=== PATIENT | male | born 1950 | race Caucasian/White ===

== ENCOUNTER → 2016-08-26 10:30 | Outpatient (CLI) | payer MEDICARE, OTHER | END | disposition home or self-care (01) | LOC: D.RAD 10:30 | DX: R13.10 Dysphagia, unspecified (principal) ==

== ENCOUNTER → 2018-02-27 14:20 | Outpatient (CLI) | payer MEDICARE, OTHER ==
--- NOTE | ~2018-02-27 | ST ---
PATIENT:ROSIE BRADY MEDICAL RECORD: [id number] SEX: M LOCATION:[facility] ORDER #: ADMISSION DATE: 02/27/18 AGE OF PATIENT: 67 REFERRING PHYSICIAN: INTERPRETING PHYSICIAN: MANJULA HATFIELD MD DATE OF SERVICE: 02/27/2018 TREADMILL STRESS TEST Baseline ECG is normal. Exercised for 7 minutes 30 seconds on Milton protocol. Maximum heart rate 150 beats per minute, 100% of max predicted. There was some horizontal ST depression in the inferolateral leads noted with peak exertion, lasting briefly in recovery. Normal blood pressure response to exercise. No arrhythmias noted. Good exercise tolerance for age. IMPRESSION: Clinically suspicious treadmill stress test. TRANSINT:[id number] Voice Confirmation ID: [id number] DOCUMENT ID: [id number] MANJULA HATFIELD MD CC: [id number] DICTATION DATE: 02/28/18 1520 PET NUTRITION SPECIALIST: 02/28/18 2329 DEP CLI 02/27/18 [place] [id number] [place] [id number]
== END | disposition home or self-care (01) ==
LOC: D.HCCARDIO 14:20
DX: R06.09 Other forms of dyspnea (principal)

== ENCOUNTER 2018-03-07 11:55 | Outpatient (CLI) | payer MEDICARE, OTHER ==
[~2018-03-07] VITALS: Ht 172.7 cm; Wt 95.5 kg
--- NOTE | ~2018-03-07 | HEMODYNAMI ---
PATIENT:ROSIE BRADY MEDICAL RECORD: [id number] : 48 LOCATION:D.CAT ADMISSION DATE: 03/07/18 Generatedon:03/07/201815:20 Patient name: ROSIE BRADY Patient #: [id number] SSN: DO B: 1950 Date of study: 03/07/2018 Page: Of Hemodynamic Procedure Report Patient Data Patient Demographics Procedure consent was obtained First Name: ROSIE Gender: Male Last Name: CAITLYN : 1950 [facility] Initial: D Age: 67 year(s) Patient #: [id number] Race: Unknown Additional ID: [id number] Contact details Address: [address] [place] [address] State: [place] City: [facility] [place] Zip code: [address] Past Medical History Allergies: No known allergies Admission Admission Data Admission Date: 03/07/2018 Admission Time: 11:55 Admit Source: Other Lab Results Lab Result Date: 03/07/2018 Lab Result Time: 12:25 Biochemistry Name Units Result Min Max BUN mg/dl 16 --(---*)-- 7 18 Creatinine mg/dl 1 --(--*-)-- 0.6 1.3 CBC Name Units Result Min Max Hematocrit % 42.3 --(*---)-- 42 54 Hemoglobin g/dl 14.8 --(-*--)-- 13.5 17.5 Procedure Procedure Types Cath Procedure Diagnostic Procedure [facility] w/Coronaries Sedation Charges Moderate Sedation up to 15 minutes Procedure Description Procedure Date Procedure Date: 03/07/2018 Procedure Start Time: 15:05 Procedure End Time: 15:19 Procedure Staff Name Function Guzman North MD Performing Physician Lorena Haile RT Monitor Rah Gipson RT Scrub Jackie Gomez RN Nurse Alber Self RN Research Project Coordinator Procedure Data Cath Procedure Fluoroscopy Diagnostic fluoroscopy Total fluoroscopy Time: 3.7 time: 3.7 min min Diagnostic fluoroscopy Total fluoroscopy dose: 373 dose: 373 mGy mGy Contrast Material Contrast Material Type Amount (ml) Isovue 300 55 Entry Location Entry Primary Successful Side Size Upsize Upsize Entry Closure Nelson ccessful Closure Location (Fr) 1 (Fr) 2 (Fr) Remarks Device Remarks Radial Right 6 Fr Mechanical artery Short Compression Estimated blood loss: 5 ml Diagnostic catheters Device Type Used For End Catheter Placement DIAGNOSTIC [place] 110cm 5 Procedure Fr catheter ([id number]) DIAGNOSTIC Pigtail 5Fr Procedure catheter ([id number]) Procedure Complications No complications Procedure Medications Medication Administration Route Dosage 0.9% NaCl I.V. 100 ml/hr Oxygen etCO2 Nasal cannula 2 l/min Lidocaine 2% added to field 20 Heparin Flush Bag added to field 2 bags (1000units/500ml NS) Radial Cocktail added to field 1 syringe (Verapomil 2mg/Nitro 400mcg/Heparin 1500units) Versed I.V. 2 mg Fentanyl I.V. 50 mcg Versed I.V. 1 mg Fentanyl I.V. 25 mcg Hemodynamics Rest HGB: 14.8 (g/dl) Heart Rate: 52 (bpm) Pressure Samples Time Site Value (mmHg) Purpose Heart Use Rate(bpm) 15:15 LV 117/1,20 Snapshot 65 Gradients Valve Time Site Site Mean SEP/DFP Peak To Heart Use 1 2 (mmHg) (sec/min) Peak Rate (mmHg) (bpm) Aortic 15:15 LV AO 61 Snapshots Pre Cath Intra NCS Post Cath Vital Signs Time Heart Resp SPO2 etCO2 NIBP Rhythm Pain Sedation Rate (ipm) (%) (mmHg) (mmHg) Status Level (bpm) 14:52:20 54 10 100 33.5 114/65(80) NSR 0 (11) 10(A) , No pain 14:56:40 52 15 100 38.6 111/65(87) NSR 0 (11) 10(A) , No pain 15:00:58 55 12 97 29 110/58(86) NSR 0 (11) 10(A) , No pain 15:05:14 54 10 97 31.9 112/65(79) NSR 0 (11) 10(A) , No pain 15:09:24 63 10 96 18.6 102/64(82) NSR 0 (11) 9(A) , No pain 15:13:40 66 10 96 28.1 113/66(93) NSR 0 (11) 9(A) , No pain 15:17:59 58 12 97 36.4 124/71(88) NSR 0 (11) 10(A) , No pain Medications Time Medication Route Dose Verified Delivered Reason Notes E ffectiveness by by 14:54:51 0.9% NaCl I.V. 100 Guzman Jackie used for ml/hr Mary Anne Jason procedure MD SANDOVAL 14:55:01 Oxygen etCO2 2 l/min Guzman Jackie used for Nasal Mary Anne Jason procedure cannula MD SANDOVAL 14:55:07 Lidocaine 2% added 20ml Guzman Hinds for local [facility] BARKER 14:55:12 Heparin Flush added 2 bags Guzman Guzman used for Bag to [facility] procedure (1000units/500ml field MD BARKER NS) 14:55:19 Radial Cocktail added 1 Guzman Guzman used for (Verapomil to syringe Mary Anne Mary Anne procedure 2mg/Nitro field MD BARKER 400mcg/Heparin 1500units) 14:58:46 Fentanyl I.V. 50 mcg Guzman Jackie for Mary Anne Jason sedation MD SANDOVAL 14:58:46 Versed I.V. 2 mg Guzman Jackie for Mary Anne Jason sedation MD SANDOVAL 15:04:59 Versed I.V. 1 mg Guzman Jackie for Mary AnneCrispin Gomez sedation MD SANDOVAL 15:05:03 Fentanyl I.V. 25 mcg Guzman Jackie for Mary AnneCrispin Gomez sedation MD SANDOVALmaturity checker Log Time Note 14:36:40 Informed consent obtained and on chart 14:36:43 Admit Source: Other 14:36:47 Diagnostic Cath status Elective 14:36:48 Time tracking: Regular hours (M-F 7:00 - 5:00) 14:36:51 Plan of Care:Hemodynamics will remain stable., Cardiac rhythm will remain stable., Comfort level will be maintained., Respiratory function will remain adequate., Patient/ family verbilizes understanding of procedure., Procedure tolerated without complication., Recovers from procedure without complications.. 14:37:38 H&P Date Dictated: 03/02/2018 Within 30 days and on chart., H&P Addendum completed by physician on day of procedure. (MUST COMPLETE FOR ALL OUTPATIENTS). 14:38:53 Lab Result : Creatinine 1 mg/dl 14:38:53 Lab Result : BUN 16 mg/dl 14:38:53 Lab Result : Hemoglobin 14.8 g/dl 14:38:53 Lab Result : Hematocrit 42.3 % 14:39:17 Alber Self RN sent for patient. Start room use. 14:43:44 Patient received from Pre/Post Procedure Room to CCL 1 Alert and oriented. Tansferred to table in Supine position. 14:43:46 Warm blankets applied, and manuel hugger turned on for patient comfort. 14:43:46 Correct patient and procedure confirmed by team. 14:43:49 ECG and BP/O2 sat monitors applied to patient. 14:51:08 Vital chart was started 14:54:51 0.9% NaCl 100 ml/hr I.V. was administered by Jackie Gomez RN; used for procedure; 14:55:01 Oxygen 2 l/min etCO2 Nasal cannula was administered by Jackie Gomez RN; used for procedure; 14:55:07 Lidocaine 2% 20ml vial added to field was administered by Guzman North MD; for local anesthetic; 14:55:12 Heparin Flush Bag (1000units/500ml NS) 2 bags added to field was administered by Guzman North MD; used for procedure; 14:55:19 Radial Cocktail (Verapomil 2mg/Nitro 400mcg/Heparin 1500units) 1 syringe added to field was administered by Guzman North MD; used for procedure; 14:57:26 Baseline sample Acquired. 14:57:30 Rhythm: sinus bradycardia 14:57:31 Full Disclosure recording started 14:57:31 Pre-procedure instructions explained to patient. 14:57:31 Pre-op teaching completed and patient verbalized understanding. 14:57:33 Family unavailable. 14:57:35 Patient NPO since Midnight. 14:57:40 Patient allergic to No known allergies 14:57:42 Is patient on blood thinner?No 14:57:44 Patient diabetic? No. 14:57:46 Previous problem with sedation/anesthesia? No ? 14:57:47 Snore? Yes 14:57:47 Sleep apnea? Yes 14:57:48 Deviated septum? No 14:57:49 Opens mouth fully? Yes 14:57:49 Sticks out tongue? Yes 14:57:51 Airway obstruction? No ? 14:57:53 Dentures? No ? 14:57:56 Modified Prasanna's test Ulnar < 7 seconds 14:57:58 Patient pain scale 0/10 ?. 14:58:01 IV patent on arrival in left hand with 0.9% NaCl at O. 14:58:03 Lab results completed and on chart. 14:58:05 Right Radial & Right Groin area was prepped with chlora-prep and draped in sterile fashion 14:58:06 Alarms reviewed by R. N. 14:58:06 Sharps counted by scrub and verified by R.N. 14:58:28 --------ALL STOP TIME OUT------ 14:58:28 Final Timeout: patient, procedure, and site verified with staff and physician. All members of the team are in agreement. 14:58:30 Right Radial & Right Groin site verified by team. 14:58:33 Physical assessment completed. ASA score P 2 - A patient with mild systemic disease as per Guzman North MD. 14:58:36 Sedation plan: IV Moderate Sedation Medication:Versed, Fentanyl 14:58:39 Use device set Radial Dx or PCI 14:58:40 ACIST Syringe (95266) opened to sterile field. 14:58:41 Bag Decanter (2001S) opened to sterile field. 14:58:42 ACIST Hand Control (48134) opened to sterile field. 14:58:42 ACIST Manifold (39409) opened to sterile field. 14:58:43 Tegaderm 4 x 4 (1626W) opened to sterile field. 14:58:46 Fentanyl 50 mcg I.V. was administered by Jackie Gomez RN; for sedation; 14:58:46 Versed 2 mg I.V. was administered by Jackie Gomez RN; for sedation; 14:58:52 Medline Cath Pack ([id number]) opened to sterile field. 14:58:52 DIAGNOSTIC WIRE .035 260cm J wire (114146) opened to sterile field. 14:58:53 MBrace Wrist Support ([id number]) opened to sterile field. 14:58:54 SHEATH 6FR Slender (02-6596) opened to sterile field. 15:02:43 Zero performed for pressure channel P1 15:04:59 Versed 1 mg I.V. was administered by Jackie Gomez RN; for sedation; 15:05:00 Procedure started. 15:05:03 Fentanyl 25 mcg I.V. was administered by Jackie Gomez RN; for sedation; 15:05:20 Local anesthetic to right radial artery with Lidocaine 2% by Guzman North MD.INITIAL ACCESS ONLY 15:06:38 A 6 Fr Short sheath was inserted into the Right Radial artery 15:07:08 A DIAGNOSTIC [place] 110cm 5 Fr catheter (264047) was advanced over the wire and used for Procedure. 15:09:25 GLIDE WIRE ANGLE 260cm (EL8084) opened to sterile field. 15:09:45 GLIDEWIRE ADVANCED 15:09:58 MAGIC TORQUE 180cm 0.035 wire ([id number]) opened to sterile field. 15:11:29 LCA angiography performed. 15:13:00 RCA angiography performed. 15:13:06 Catheter exchanged over wire. 15:13:49 A DIAGNOSTIC Pigtail 5Fr catheter (166111J) was advanced over the wire and used for Procedure. 15:14:35 LV gram done using JULIEN 15:14:40 Injector settings: Ml/sec: 5, Volume: 15, 15:15:05 LV hemodynamics recorded. 15:15:14 EF : 55 % 15:15:22 Catheter removed. 15:15:41 TR BAND Standard ([id number]) opened to sterile field. 15:15:48 Procedure ended.(Physican Out) 15:16:01 Sheath removed intact; hemostasis achieved with Mechanical Compression to the Right Radial artery. 15:16:31 Fluoroscopy time 03.70 minutes. 15:16:35 Fluoroscopy dose: 373 mGy 15:16:35 Flurop Dose total: 373 15:16:38 Contrast amount:Isovue 300 55ml. 15:16:55 TR band inflated with 10cc of air. 15:17:00 Post-procedure physical assessment completed. ASA score P 2 - A patient with mild systemic disease as per Guzman North MD. 15:17:03 Post procedure rhythm: sinus bradycardia 15:17:05 Estimated blood loss: 5 ml 15:17:06 Post procedure instruction explained to patient.Patient verbalizes understanding. 15:17:06 Patient needs reinforcement of post procedure teaching. 15:18:58 Procedure type changed to Cath procedure, Diagnostic procedure, LHC, LHC w/Coronaries, Sedation Charges, Moderate Sedation up to 15 minutes 15:19:32 Procedure and supply charges have been captured, reviewed, submitted and are correct. 15:19:35 Procedure Complication : No complications 15:19:36 Vital chart was stopped 15:19:37 See physician's report for complete and final results. 15:19:39 Report given to Pre/Post Procedure Room. 15:19:41 Patient transfered to Pre/Post Procedure Room with Bed. 15:19:43 Procedure ended. 15:19:43 Full Disclosure recording stopped 15:19:50 End room use (Document Last) Device Usage Item Name Manufacture Quantity Catalog Hospital Part Current Minima l Lot# / Number Charge Number Stock Stock Serial# Code ACIST Acist 1 84289 347712 159714 053845 20 Syringe Medical (80154) Systems Inc Bag Decanter Microtek 1 2001S 109575 04383 238271 5 (2001S) Medical Inc. ACIST Hand Acist 1 44118 639920 336433 764173 5 Control Medical (62565) Systems Inc ACIST Acist 1 32777 963431 282828 544185 5 Manifold Medical (12785) Systems Inc Tegaderm 4 x 3M 1 1626W 530268 532491 287448 5 4 (1626W) Medline Cath Medline 1 [id number] 070178 30078 911445 5 Pack ([id number]) DIAGNOSTIC [place] 1 976962 925552 678801 824591 30 WIRE .035 260cm J wire (776626) MBrace Wrist Advanced 1 140-0250-00 789227 20424 623177 5 Support Vascular (029840159) Dynamics SHEATH 6FR Terumo 1 [id number] 583658 039939 440145 5 Slender (80-1060) DIAGNOSTIC Terumo 1 40-1723 296124 818037 770963 5 [place] 110cm 5 Fr catheter (845360) GLIDE WIRE Terumo 1 AV8025 593189 920790 196557 5 ANGLE 260cm (JL4003) MAGIC TORQUE Reynolds 1 [id number] 581694 655440 770509 1 180cm 0.035 Scientific wire ([id number]) DIAGNOSTIC Cardinal 1 [id number] 930484 172022 273056 5 Pigtail 5Fr Health catheter (454914F) TR BAND Terumo 1 [id number] 188493 971425 584604 40 Standard ([id number]) Signature Audit [place] Stage Time Signature Unsigned Intra-Procedure 03/07/2018 Lorena Haile 3:20:42 PM RT(R) Signatures Monitor : Lorena Haile Signature : RT Date : Time : [address] [place] [address]
--- NOTE | ~2018-03-07 | OP ---
PATIENT NAME: ROSIE BRADY MEDICAL RECORD: [id number] :48 LOCATION:D.CAT ADMISSION DATE: SURGEON: MANJULA HATFIELD MD DATE OF OPERATION: 03/07/2018 PROCEDURES: Left heart catheterization, selective coronary angiography, right radial approach. CATHETERS: Radial sheath, [place] catheter. The procedure was well tolerated. The patient was returned to the ramos. Sheath was removed and TR band was placed. FINDINGS: Left ventriculography in 30-degree JULIEN view. Normal wall motion and normal systolic function. CORONARY ANATOMY: LEFT MAIN: Left main is free of disease. LAD: Free of disease in the diagonal system. CIRCUMFLEX: Free of disease in the marginal system. RIGHT CORONARY ARTERY: Dominant artery, gives rise to PDA, free of disease. IMPRESSION: Normal left ventricular systolic function and normal coronary anatomy. TRANSINT:[id number] Voice Confirmation ID: [id number] DOCUMENT ID: [id number] MANJULA HATFIELD MD CC: [id number] DICTATION DATE: 03/07/18 1522 VICE PRESIDENT BIOSTATISTICS: 03/07/182221 DEP CLI 03/07/18 [place] [id number] [place] [address]
[2018-03-07] MEDS ORDERED: PRAVACHOL40 MG PO (12:16)
[2018-03-07] MEDS ORDERED: UROXATRAL10 MG PO (12:16)
[2018-03-07] MEDS ORDERED: XALATAN 0.0052.5 ML EACH EYE (12:17)
[2018-03-07] MEDS ORDERED: NIASPAN500 MG PO (12:17)
[2018-03-07] MEDS ORDERED: HCTZ25 MG PO (12:17)
[2018-03-07] MEDS ORDERED: TIMOPTIC 0.5 % O5 ML EACH EYE (12:18)
[2018-03-07 12:29] VITALS: BP 126/63; Ht 172.7 cm; Wt 95.5 kg
[2018-03-07 12:41] LABS: BASOPHILS 0.4 % (0-2); EOSINOPHILS 1.8 % (0-7); HEMATOCRIT 42.3 % (42.0-54.0); HEMOGLOBIN 14.8 g/dL (13.5-17.5); IMMATURE GRANULOCYTES 0.4 % (0-5); LYMPHOCYTES 33.5 % (15-50); MCH 31.4 pg (26.0-34.0); MCV 89.8 fL (80.0-100.0); MEAN PLATELET VOLUME 10.9 fL (7.4-10.4); MONOCYTES 9.1 % (2-11); NEUTROPHILS 54.8 % (40-80); PLATELET COUNT 151 10x3/uL (130-400); RBC 4.71 10x6/uL (4.20-6.10); RDW 13.8 % (11.5-14.5); WBC 4.9 10x3/uL (4.8-10.8)
[2018-03-07 12:47] LABS: CALC OSMOLALITY 283 mosm/kg (275-300); CALCIUM 8.4 mg/dL (8.5-10.1); CARBON DIOXIDE 28.8 mmol/L (21.0-32.0); CHLORIDE - SERUM 105 mmol/L (98-107); GLUCOSE 99 mg/dL (74-106); POTASSIUM - SERUM 3.8 mmol/L (3.5-5.1); SODIUM 142 mmol/L (136-145); UREA NITROGEN 16 mg/dL (7-18); eGFR NON AFRICAN AMERICAN 79 mL/min (90-120)
== END 2018-03-07 17:37 ==
LOC: D.CATH 11:55
PROVIDERS: Internal Medicine Interventional Cardiology
DX: I20.9 Angina pectoris, unspecified (principal); Z01.812 Encounter for preprocedural laboratory examination